=== PATIENT | female | born 1975 | race Caucasian/White ===

== ENCOUNTER → 2020-03-28 12:26 | Outpatient (BNVA) | payer OTHER, SELFPAY | PROVIDERS: Family Provider Specialist; PCP Family Medicine; Visit Provider Nurse Practitioner | DX: G40.909 Epilepsy, unspecified, not intractable, without status epilepticus (principal) | CPT/HCPCS: 99204 ==

== ENCOUNTER 2020-04-24 13:33 | Outpatient (CLI) | payer OTHER, SELFPAY ==
--- NOTE | 2020-04-24 13:45 | MR_ITS ---
WS: [id number] MRI HEAD WITH CONTRAST TECHNIQUE: Sagittal T1, T2 axial, T2 axial FLAIR, axial susceptibility weighted imaging, axial diffus ion weighted images, and coronal T2 images were obtained. Pre and post-T1 axial and post T1 coronal i mages. ADC and FSPGR images. CLINICAL INFORMATION: seizure COMPARISON: None. FINDINGS: No evidence of restricted diffusion to suggest acute ischemia. Ventricular system and basal cisterns are patent. No suspicious intracranial signal abnormalities. No significant parenchymal volume loss. Normal posterior fossa. Normal vascular flow voids at the skull base. No extra-axial fluid collection s. No evidence of mass or mass effect. Paranasal sinuses and mastoid air cells are well aerated. Temp oral lobes and hippocampal formations are normal in appearance. Normal optic chiasm and pituitary inf undibulum. No evidence of mesial temporal sclerosis. No signal abnormality in the mesial temporal lob es. No hemosiderin on susceptibly weighted images. No abnormal gadolinium enhancement. Normal dural venou s sinuses. Normal cavernous sinuses and Meckel's cave. MR/MR head wo/w con [id number] IMPRESSION: 1. No evidence of restricted diffusion to suggest acute ischemia. 2. No suspicious intracranial signal abnormalities. No significant parenchymal volume loss. 3. Temporal lobes and hippocampal formations are normal in appearance. No evid ence of mesial temporal sclerosis. No asymmetric hippocampal atrophy. 4. No abnormal gadolinium enhancement. 5. No other significant findings.
== END 2020-04-24 13:34 | disposition home or self-care (01) ==
LOC: RADSHAW 13:38
PROVIDERS: PCP Family Medicine; Visit Provider Nurse Practitioner
DX: R56.9 Unspecified convulsions (principal)
CPT/HCPCS: 70553

== ENCOUNTER → 2020-05-09 12:35 | Outpatient (BNVA) | payer OTHER, SELFPAY | PROVIDERS: PCP Family Medicine; Visit Provider Specialist | DX: R56.9 Unspecified convulsions (principal) | CPT/HCPCS: 95816 ==

== ENCOUNTER → 2021-07-01 13:02 | Outpatient (BNVA) | payer OTHER, SELFPAY | PROVIDERS: PCP Family Medicine; Referring Provider Nurse Practitioner Family; Visit Provider Internal Medicine | DX: E89.40 Asymptomatic postprocedural ovarian failure (principal); R79.89 Other specified abnormal findings of blood chemistry; E03.9 Hypothyroidism, unspecified; I10 Essential (primary) hypertension; E78.00 Pure hypercholesterolemia, unspecified; E55.9 Vitamin D deficiency, unspecified; Z87.891 Personal history of nicotine dependence | CPT/HCPCS: 99204 ==